=== PATIENT | female | born 1955 | race Caucasian/White ===

== ENCOUNTER 2023-10-01 13:03 | Emergency (ER) | payer MEDICARE, SELFPAY ==
--- NOTE | ~2023-10-01 | XR_ITS ---
EXAMINATION: XR shoulder LT min 2V DATE: 10/01/2023 13:44 INDICATION: Left shoulder pain. TECHNIQUE: 4 views of left shoulder were obtained. COMPARISON: None. FINDINGS: Bone alignment is normal. No fracture. There is mild osteoarthritis of glenohumeral joint a nd moderate osteoarthritis of acromioclavicular joint. IMPRESSION: 1. Polyarticular osteoarthritis. Reviewed, dictated and finalized at location A. [facility]ATE MANAGER
[2023-10-01 13:24] VITALS: BP 130/62; PULSE 85; RESP 16; TEMP 37; O2SAT 96
--- NOTE | 2023-10-01 14:06 | ED.GENADULT ---
HPI - General Adult General Chief complaint: Extremity Injury, Upper Stated complaint: Left Shoulder Pain Source: patient Mode of arrival: ambulatory Limitations: no limitations History of Present Illness HPI narrative: Patient presents for evaluation of left shoulder pain. Symptom onset about a month ago. She cannot identify any traumatic injury however she states she has been working with some plants and working on removing a pool cover. These activities seem to aggravate her pain. She rates her pain 8/10 severity, described as aching and throbbing. Pain radiates down the left upper extremity to the elbow. She has been taking Tylenol for her symptoms. She cannot take NSAIDs due to chronic kidney disease. She indicates she seeing pain management for pain in her right shoulder. She was told that she had arthritis in that shoulder and received a steroid injection. She indicates in the past hydrocodone has helped her pain. Denies loss of range of motion. Related Data Home Medications Medication Instructions Recorded Confirmed anastrozole 1 mg tablet mg 10/01/23 atorvastatin 40 mg tablet mg 10/01/23 betamethasone valerate 0.1 % applic topical 10/01/23 topical cream doxycycline hyclate 100 mg capsule mg 10/01/23 duloxetine 60 mg capsule,delayed mg PO 10/01/23 release gabapentin 300 mg capsule mg 10/01/23 metformin 500 mg tablet mg 10/01/23 metoprolol tartrate 25 mg tablet mg 10/01/23 trazodone 50 mg tablet mg 10/01/23 Allergies Allergy/AdvReac Type Severity Reaction Status Date / Time No Known Allergies Allergy Verified 10/01/23 13:09 Review of Systems Review of Systems: CONSTITUTIONAL: Denies fever, chills, or sweats. EYES: Denies visual changes, redness, or discharge. ENT: Denies rhinorrhea, congestion, sore throat, or otalgia. CARDIOVASCULAR: Denies chest pain, palpitations, or edema. RESPIRATORY: Denies cough or dyspnea. GASTROINTESTINAL: Denies abdominal pain, nausea, vomiting, or diarrhea. GENITOURINARY: Denies dysuria or hematuria. SKIN: Denies rash or itching. MUSCULOSKELETAL: Reports left shoulder pain. Denies other joint pain. NEUROLOGIC: Denies headache, numbness, dizziness, or weakness. PSYCHIATRIC: Denies anxiety or depression. [facility] Past Medical History Medical History Arthritis of left shoulder region Chronic kidney disease Diabetes Hypertension Surgical History Surgical History History of knee replacement Family History Family History Mother Family history non-contributory Social History Social History Smoking status: Never smoker Living arrangements: alone Gender identity (if verbalized by the patient): Female Sexual Orientation (if Verbalized by the Patient): Straight or Heterosexual Spiritual care concerns: No Exam Narrative: GENERAL: Well-appearing, well-nourished, and in no acute distress. HEAD: Normocephalic, atraumatic. EYES: PERRLA and EOMI. ENT: Nares clear, no rhinorrhea or epistaxis. Mucous membranes moist. Oropharynx without tonsillar hypertrophy exudate or other lesions. Bilateral TMs pearly forte nonbulging NECK: Supple. No adenopathy or masses. No carotid bruits or JVD CHEST: Clear to auscultation. No respiratory distress. No wheezes rales or rhonchi HEART: Regular rate and rhythm. No murmur heard. Normal peripheral pulses. ABDOMEN: Soft, nontender, nondistended, normal active bowel sounds. EXTREMITIES: Tenderness in the proximal left humerus without crepitus or deformity. Full range of motion left shoulder. 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 NEURO: No focal deficits. Alert and oriented x3. PSYCH: Normal mood and affect. Course Course Emergency Course:
== END 2023-10-01 14:08 | disposition home or self-care (01) ==
PROVIDERS: Emergency Provider Nurse Practitioner; PCP Internal Medicine
DX: M19.012 Primary osteoarthritis, left shoulder (principal); I12.9 Hypertensive chronic kidney disease with stage 1 through stage 4 chronic kidney disease, or unspecified chronic kidney disease; E11.22 Type 2 diabetes mellitus with diabetic chronic kidney disease; N18.9 Chronic kidney disease, unspecified
CPT/HCPCS: 73030; 99213; G0463